=== PATIENT | female | born 1995 | race Caucasian/White ===

== ENCOUNTER 2019-06-03 20:18 | Emergency (ER) | payer BC ==
[2019-06-03] MEDS ORDERED: Ondansetron PF 4 MG/2 ML Vial ONE (20:50)
[2019-06-03] MEDS ORDERED: Ketorolac Tromethamine 30 MG/ML VIAL ONE (20:50)
[2019-06-03 20:52] LABS: Hemoglobin 14.3 g/dL (12.0-16.0); Mean Corpuscular Hemoglobin 29.4 pg (27.0-31.0); Mean Corpuscular Volume 87.7 fL (78.0-98.0); Red Blood Cell (RBC) Count 4.86 mill/uL (4.20-5.40); White Blood Cell (WBC) Count 8.9 thou/uL (4.8-10.8)
[2019-06-03 20:53] LABS: #Eosinphils 0.1 thou/uL (0.0-0.7); #Lymphocytes 0.5 thou/uL (1.20-3.40); #Monocytes 0.2 thou/uL (0.11-0.59); #Neutrophils 8.1 thou/uL (1.40-6.50); %Basophils 0.3 % (0.0-1.0); %Eosinophils 1.1 % (0.0-10.0); %Lymphocytes 5.4 % (21.0-51.0); %Monocytes 2.3 % (0.0-10.0); %Neutrophils 90.9 % (42.0-75.0); Mean Corpuscular HGB CONC 33.6 g/dL (32.0-36.0); Mean Platelet Volume 6.6 fL (7.4-10.4); Platelet Count 278 thou/uL (130-400); RBC Distribution Width 10.9 % (11.5-14.5)
[2019-06-03 21:00] LABS: BHCG - Serum Negative (NEGATIVE); Pregs Control Background? CLEAR/WHITE (CLR/WHITE); Pregs Control Bar Appear? YES (CONTROL BAR)
[2019-06-03 21:09] LABS: ALT (SGPT) 21 U/L (8-55); AST (SGOT) 17 U/L (5-34); Albumin 4.4 g/dL (3.5-5.0); Alkaline Phosphatase 44 U/L (40-110); Anion Gap 17 mmol/L (10-20); BUN (Urea Nitrogen) 16 mg/dL (7.0-18.7); Bilirubin, Total 0.5 mg/dL (0.2-1.2); Calc. Creatinine Clearance 0 mL/min (70-130); Carbon Dioxide 21 mmol/L (22-29); Chloride 108 mmol/L (98-107); Estimated GFR-MDRD 82; Globulin 2.8 g/dL (2.4-3.5); Glucose 107 mg/dL (70-105); Protein, Total 7.2 g/dL (6.0-8.3); Sodium 142 mmol/L (136-145)
== END 2019-06-03 22:26 | disposition home or self-care (01) ==
LOC: SCSER 20:18
DX: R11.2 Nausea with vomiting, unspecified (principal); R19.7 Diarrhea, unspecified; J45.909 Unspecified asthma, uncomplicated
CPT/HCPCS: 80053; 84703; 85025; 87804; 96361; 96372; 96374; 96375; J0500; J1885; J2405

== ENCOUNTER 2021-07-29 09:00 | Outpatient (CLI) | payer BC ==
[2021-07-29] MEDS ORDERED: Iopamidol 370 76% 100 ML VIAL ONE (12:18)
== END 2021-07-29 09:01 | disposition home or self-care (01) ==
LOC: BICCT 09:00
PROVIDERS: ATTEND Family Medicine
DX: R51.9 Headache, unspecified (principal)
CPT/HCPCS: 70470; Q9967

== ENCOUNTER 2023-04-13 14:09 | Outpatient (CLI) | payer BC | END 2023-04-13 14:10 | disposition home or self-care (01) | LOC: BICRAD 14:09 | PROVIDERS: ATTEND Family Medicine | DX: J40 Bronchitis, not specified as acute or chronic (principal) | CPT/HCPCS: 71046 ==

== ENCOUNTER 2023-04-29 13:34 | Outpatient (CLI) | payer BC | END 2023-04-29 13:35 | disposition home or self-care (01) | LOC: SCSMRI 13:34 | PROVIDERS: ATTEND Psychiatry & Neurology Neurology | DX: M48.02 Spinal stenosis, cervical region (principal); R51.9 Headache, unspecified; M47.812 Spondylosis without myelopathy or radiculopathy, cervical region | CPT/HCPCS: 70553; 72156 ==